=== PATIENT | male | born 1980 | race African-American/Black ===

== ENCOUNTER 2021-01-11 11:57 | Observation (INO) ==
[2021-01-11] MEDS ORDERED: SODIUM CHLORIDE 0.9% 1,000 ML IV STA (12:21)
[2021-01-11 12:58] LABS: Basophils # 0.1 10*3/uL (0.0-0.2); Basophils % 1.1 % (0.0-0.8); Eosinophils % 0.5 % (0.00-10.9); Hematocrit 45.6 VOL% (42.0-52.0); Hemoglobin 14.5 GM/DL (14.0-18.0); Immature Granulocytes % 0.4 %; Immature Granulocytes Absolute 0.03 #; Lymphocytes # 2.2 10*3/uL (1.4-4.0); Lymphocytes % 28.9 % (21.2-54.2); Mean Corpuscular HGB Conc 31.8 GM/DL (32-36); Mean Corpuscular Volume 90.3 FL (87-102); Monocytes % 7.6 % (1.7-12.7); Neutrophils % 61.5 % (38.7-73.9); Platelet Count 223 T/CUMM (130-400); Red Blood Count 5.05 MC/CUMM (3.8-5.5); Red Cell Distribution Width 12.1 % (9.3-17.3); White Blood Count 7.5 T/CUMM (4-12)
[2021-01-11 13:15] LABS: Bilirubin,Urine Negative (Negative); Blood, Urine Negative (Negative); Glucose,Urine (UA) Negative (Negative); Ketones,Urine 5 mg/dL (Negative); Mucus,Urine Few /LPF (Occasional); Nitrite,Urine Negative (Negative); Protein,Urine Negative; RBC,Urine 3 /HPF (0-4); Urine Appearance CLEAR (Clear); Urine Color Yellow (Yellow); Urine Specific Gravity 1.026 (1.001-1.035)
[2021-01-11 13:16] LABS: Albumin 3.9 G/DL (3.4-5.0); Bilirubin,Total 0.6 MG/DL (0.20-1.00); Calcium 9.3 MG/DL (8.5-10.1); Osmolality,Calculated 273.7 MOS/KG (273-304); Potassium 3.7 MMOL/L (3.5-5.1); Total Protein 7.9 G/DL (6.4-8.2)
[2021-01-11 14:23] LABS: Hypochromasia 1+; Ovalocytes Few; Platelet Estimate Normal; Polychromasia Slight
[2021-01-11] MEDS ORDERED: guaiFENesin/DM ER 600-30 MG TABLET PO PRN (15:27)
[2021-01-11] MEDS ORDERED: hydrALAZINE 20 MG/1 ML VIAL IV PRN (15:27)
[2021-01-11] MEDS ORDERED: DEXTROSE 50% 25 GM/50 ML VIAL IV PRN (15:27)
[2021-01-11] MEDS ORDERED: GLUCAGON 1 MG VIAL IM PRN (15:27)
[2021-01-11] MEDS ORDERED: ONDANSETRON 4 MG/2 ML VIAL IV PRN (15:27)
[2021-01-11] MEDS ORDERED: ACETAMINOPHEN 325 MG TABLET PO PRN (15:27)
[2021-01-11] MEDS ORDERED: DOCUSATE SODIUM 100 MG CAPSULE PO PRN (15:27)
[2021-01-11] MEDS ORDERED: NICOTINE 21 MG/24 HR PATCH TRANSDERM PRN (16:04)
[2021-01-11] MEDS: LACTATED RINGERS 1,000 ML IV SCH (17:33)
[2021-01-11] MEDS ORDERED: PROMETHAZINE INJ 12.5 MG in SODIUM CHLORIDE 0.9% 50 ML IV PRN (18:43)
[2021-01-11] MEDS: ENOXAPARIN 40 MG/0.4 ML SYRINGE SUBCUT SCH (21:48)
[2021-01-12] MEDS: LACTATED RINGERS 1,000 ML IV SCH ×2 (03:11→08:00)
[2021-01-12 06:10] LABS: Basophils # 0.1 10*3/uL (0.0-0.2); Basophils % 0.6 % (0.0-0.8); Eosinophils % 0.1 % (0.00-10.9); Hematocrit 43.7 VOL% (42.0-52.0); Hemoglobin 13.8 GM/DL (14.0-18.0); Immature Granulocytes % 0.2 %; Immature Granulocytes Absolute 0.02 #; Mean Corpuscular HGB Conc 31.6 GM/DL (32-36); Mean Platelet Volume 10.2 FL (9.6-12.0); Monocytes % 7.1 % (1.7-12.7); Platelet Count 207 T/CUMM (130-400); Red Cell Distribution Width 11.9 % (9.3-17.3); White Blood Count 8.3 T/CUMM (4-12)
[2021-01-12 06:43] LABS: Albumin 3.2 G/DL (3.4-5.0); Bilirubin,Total 1.1 MG/DL (0.20-1.00); Calcium 8.6 MG/DL (8.5-10.1); Potassium 3.7 MMOL/L (3.5-5.1); Total Protein 6.7 G/DL (6.4-8.2)
[2021-01-12] MEDS: PANTOPRAZOLE 40 MG TABLET PO SCH (09:50)
[2021-01-12] MEDS: SUCRALFATE 1 GM TABLET PO SCH ×4 (09:54→21:51)
[2021-01-12] MEDS: ENOXAPARIN 40 MG/0.4 ML SYRINGE SUBCUT SCH (21:51)
[2021-01-13] MEDS: LACTATED RINGERS 1,000 ML IV SCH ×2 (08:12→09:29)
[2021-01-13 09:01] VITALS: BP 144/83
[2021-01-13] MEDS: PANTOPRAZOLE 40 MG TABLET PO SCH (09:28)
[2021-01-13] MEDS: SUCRALFATE 1 GM TABLET PO SCH (09:28)
== END 2021-01-13 10:59 ==
LOC: N.EDINP 11:57 → N.ED 11:57 → N.EDINP 17:59 → N.3W 18:07
PROVIDERS: ADMIT Internal Medicine Geriatric Medicine; ATTEND Internal Medicine Geriatric Medicine